=== PATIENT | male | born 1965 | race American Indian/Alaskan Native ===

== ENCOUNTER 2022-01-13 04:03 | Emergency (ER) | payer SELFPAY ==
[2022-01-13 04:59] VITALS: BP 154/90
[2022-01-13] MEDS: ASPIRIN 325 MG TAB PO ONE ×2 (05:25→07:25)
[2022-01-13 05:50] LABS: Basophils # (Auto) 0.1 K/mm3 (0.0-0.1); Basophils % (Auto) 0.8 % (0.0-1.8); Eosinophils % (Auto) 0.4 % (0.0-4.3); Hematocrit 40.7 % (35.5-45.6); Hemoglobin 12.8 gm/dl (11.8-15.2); Lymphocytes # (Auto) 2.7 K/mm3 (1.2-5.4); Lymphocytes % (Auto) 21.8 % (13.4-35.0); Mean Corpuscular HGB Conc 32 % (32-34); Mean Corpuscular Volume 84 fl (84-94); Monocytes # (Auto) 1.1 K/mm3 (0.0-0.8); Platelet Count 154 K/mm3 (140-440); Red Blood Count 4.87 M/mm3 (3.65-5.03); Red Cell Distribution Width 15.4 % (13.2-15.2)
--- NOTE | 2022-01-13 06:13 | Emergency Department Report ---
ED Chest Pain HPI - General Chief Complaint: Chest Pain Stated Complaint: CHEST PAIN Time Seen by Provider: 01/13/22 05:53 Source: patient Mode of arrival: Ambulatory Limitations: No Limitations - History of Present Illness Initial Comments: Patient presents by ambulance secondary to chest pain. He has known coronary disease. He allegedly had a heart attack and was seen at a different hospital. He is uncertain if stents were placed. Patient was doing cocaine tonight and developed chest pain. He describes it as a throbbing precordial pain. It does not radiate or migrate. It is slightly pleuritic. It does not change with position or exertion. Patient is not having pain in the arms or back. There is no history of travel or trauma. Again, this is throbbing. Severity scale (0 -10): 5 - Related Data Allergies Allergy/AdvReac Type Severity Reaction Status Date / Time No Known Allergies Allergy Verified 01/13/22 06:13 Heart Score - HEART Score History: Slightly suspicious EKG: Non-specific Age: 45-65 Risk factors: > 3 risk factors or hx of atherosclerotic disease Troponin: < normal limit HEART Score: 4 - EKG Read Time Time EKG Completed: 05:34 EKG Read Time: 05:34 ED Review of Systems ROS: Stated complaint: CHEST PAIN Other details as noted in HPI Comment: All other systems reviewed and negative Constitutional: denies: fever Eyes: denies: vision change ENT: denies: throat pain Respiratory: denies: cough Cardiovascular: as per HPI Endocrine: denies: unexplained weight loss Gastrointestinal: denies: abdominal pain Genitourinary: denies: dysuria Musculoskeletal: denies: back pain Skin: denies: rash Neurological: denies: headache Hematological/Lymphatic: denies: easy bruising ED Past Medical Hx - Past Medical History Previous Medical History?: Yes Hx Hypertension: Yes Hx Heart Attack/AMI: Yes Hx Diabetes: Yes - Surgical History Past Surgical History?: No - Family History Family history: diabetes, hypertension - Social History Smoking Status: Current Every Day Smoker (We discussed tobacco cessation.) Substance Use Type: Alcohol, Cocaine (Patient was counseled against cocaine use.) ED Physical Exam - General Limitations: No Limitations, Other (Pulse ox noted and normal) General appearance: alert, in no apparent distress - Head Head exam: Present: atraumatic, normocephalic - Eye Eye exam: Present: normal appearance, PERRL, EOMI. Absent: scleral icterus - ENT ENT exam: Present: mucous membranes moist, normal external ear exam - Neck Neck exam: Present: normal inspection. Absent: meningismus - Respiratory Respiratory exam: Present: normal lung sounds bilaterally. Absent: respiratory distress - Cardiovascular Cardiovascular Exam: Present: regular rate, normal rhythm - GI/Abdominal GI/Abdominal exam: Present: soft. Absent: tenderness - Extremities Exam Extremities exam: Present: normal capillary refill. Absent: calf tenderness - Back Exam Back exam: Absent: CVA tenderness (R), CVA tenderness (L) - Neurological Exam Neurological exam: Present: alert, oriented X3, CN II-XII intact, reflexes normal. Absent: motor sensory deficit - Psychiatric Psychiatric exam: Present: normal affect, normal mood - Skin Skin exam: Present: warm, dry ED Course Vital Signs 01/13/22 01/13/22 04:50 05:44 Temperature 98 F Pulse Rate 94 H Respiratory 18 Rate Blood Pressure 154/90 O2 Sat by Pulse 99 100 Oximetry - Reevaluation(s) Reevaluation #1: 01/13/22 06:11 EKG have been completed. It is reviewed. There is no old EKG for comparison. Patient has not been seen at this facility. He is asking for food and Ensure with every meal. When I woke him up by walking in the room, he started complaining of chest pain. Reevaluation #2: 01/13/22 06:38 Labs have been reviewed. Patient continues to complain of chest pain when awoken from sleep. Toradol was ordered. Based on his history, we will obtain a second troponin prior to disposition. Reevaluation #3: 01/13/22 08:52 Repeat troponin was noted. Patient was discharged. LAURA score - Laura Score Age > 65: (0) No Aspirin use within the Past 7 Days: (0) No 3 or more CAD Risk Factors: (1) Yes 2 or more Angina events in past 24 hrs: (0) No Known CAD with more than 50% Stenosis: (0) No Elevated Cardiac Markers: (0) No ST Deviation Greater than 0.5mm: (0) No LAURA Score: 1 ED Medical Decision Making - Lab Data Result diagrams: 01/13/22 05:20 01/13/22 05:20 Rhythm strip: Normal sinus rhythm without ectopy. Monitor observe 10 seconds. - EKG Data -: EKG Interpreted by Dc - EKG Data 01/13/22 06:12 0534-EKG shows normal sinus rhythm at 98. Intervals are normal including a QRS of 92 and a DC interval of 157. QT is prolonged at 504. Patient has T wave inversion in aVL with T wave flattening in lead I. There is poor R wave progression. There is no other ST or T wave change. Patient has no ST elevation to suggest STEMI. There is no ST depression suggestive of ischemia. There is no old EKG for comparison. - Radiology Data Radiology results: report reviewed - Medical Decision Making Patient presented with chest pain after using cocaine. There is no radiographic evidence of pneumonia or pneumothorax. There is no pleural effusion suggestive of hemothorax. There is no history of trauma. Patient has no hypoxia. He has no immobility or unilateral leg edema. I do not believe this represents PE or other thromboembolic disease. There is no pulse deficit suggestive of aortic dissection. He does not have abdominal pain that would suggest a GI source for his chest pain. Patient has undergone cardiac rule out with troponin x2. There has been no change in EKG or troponin. I do not believe this represents ACS. Certainly, this could have been vasospastic disease related to cocaine use but there is no evidence of acute ischemic damage. We have discussed lifestyle changes and outpatient follow-up. Critical Care Time: No Critical care attestation.: If time is entered above; I have spent that time in minutes in the direct care of this critically ill patient, excluding procedure time. ED Disposition Clinical Impression: Precordial chest pain, Cocaine abuse, Tobacco abuse Disposition: 01 HOME / SELF CARE / HOMELESS Is pt being admited?: No Condition: Stable Instructions: Health Risks of Smoking, Substance Use Disorder, Nonspecific Chest Pain, Adult, Pain Without a Known Cause Additional Instructions: Drink plenty of water. Return for problems. Stop smoking. Stop using drugs. Follow-up with your family doctor and product tester or the referral doctors for recheck. Take an aspirin every day if you do not already. Referrals: PRIMARY CARE, [Referring] - 3-5 Days DARYL COLE MD [Staff Physician] - 3-5 Days TIM VALLECILLO MD [Staff Physician] - 3-5 Days
[2022-01-13 06:14] LABS: Alanine Aminotransferase 62 units/L (7-56); Albumin 3.9 g/dL (3.9-5); BUN/Creatinine Ratio 28; Blood Urea Nitrogen 22 mg/dL (9-20); Calcium 8.9 mg/dL (8.4-10.2); Hemolysis Index 50
--- NOTE | 2022-01-13 06:16 | XRay Report ---
CHEST 2 VIEWS INDICATION: chest pain. COMPARISON: None. FINDINGS: Support devices: None. Heart: Mild cardiac enlargement. Lungs/Pleura: No acute air space or interstitial disease. No significant pleural effusion. IMPRESSION: No acute findings. Signer Name: Benjy Weaver MD Signed: 01/13/2022 6:11 AM Workstation Name: [id number]
[2022-01-13] MEDS: SODIUM CHLORIDE 0.9% 1000 ML 1,000 ML IV ONE ×2 (07:12→07:24)
[2022-01-13] MEDS: KETOROLAC 30 MG/1 ML INJ IV ONE ×2 (07:12→07:25)
--- NOTE | 2022-01-14 10:01 | Electrocardiograph Report ---
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
== END 2022-01-13 09:21 | disposition home or self-care (01) ==
LOC: ED 04:03
DX: R07.2 Precordial pain (principal); F14.10 Cocaine abuse, uncomplicated; Z72.0 Tobacco use; I10 Essential (primary) hypertension; E11.8 Type 2 diabetes mellitus with unspecified complications
CPT/HCPCS: 36415; 71046; 80053; 84484; 85025; 93005; 96361; 96374; 99284; J1885; J7030; Q0162